=== PATIENT | female | born 1995 | race Two or more races ===

== ENCOUNTER → 2017-05-31 | Emergency (ER) | payer OTHER ==
[~2017-05-31] VITALS: Ht 152.4 cm; Wt 65.8 kg
[~2017-05-31] MED LIST: ENALAPRIL MALEAT5 MG; HUMALOG100 U/ML; HumaLOG 100 UNIT/1 ML (3ML) SUBCUTANEO; LANTUS SOLOSTAR3 ML; Lantus 1000 U/10 ML SUBCUTANEO
== END | disposition home or self-care (01) ==
LOC: ER 20:22
DX: K29.70 Gastritis, unspecified, without bleeding (principal)

== ENCOUNTER 2017-06-07 17:20 | Inpatient (IN) | payer OTHER ==
[~2017-06-07] VITALS: Ht 157.5 cm; Wt 65.8 kg
[2017-06-07] MEDS ORDERED: VASOTEC5 MG (17:26)
[2017-06-11] MEDS ORDERED: LEVOTHYROXINE25 MCG PO (13:28)
[2017-06-11] MEDS ORDERED: VASOTEC5 MG PO (13:30)
== END 2017-06-11 14:51 | disposition home or self-care (01) | DRG 637 ==
LOC: ER 17:20 → ICU-2 21:59 → SEC-K 06-11 05:08 → MEDI 06-11 13:57 → SEC-K 06-11 14:51
PROC: 4A033R1 Measurement of Arterial Saturation, Peripheral, Percutaneous Approach (ICD-10-PCS; principal; 2017-06-07)
PROC: BW40ZZZ Ultrasonography of Abdomen (ICD-10-PCS; 2017-06-07)
DX: E10.10 Type 1 diabetes mellitus with ketoacidosis without coma (principal); A41.9 Sepsis, unspecified organism; Z79.4 Long term (current) use of insulin; E86.0 Dehydration; K29.00 Acute gastritis without bleeding

== ENCOUNTER 2019-12-02 00:14 | Inpatient (IN) | payer OTHER ==
[~2019-12-02] VITALS: Ht 157.5 cm; Wt 77.1 kg
[~2019-12-02 00:14] MED LIST changes: +LEVOTHYROXINE25 MCG PO; +VASOTEC5 MG; +VASOTEC5 MG PO
--- NOTE | 2019-12-02 00:44 | NUR ---
SE RECIBE FEMINA ALERTA Y ORIENTADA POR SHERRI ESFERAS, AMBULANDO. REFIERE QUE PRESENTA DIARREAS DE CUATRO NIX DE EVOLUCION Y DOLOR DE BOBBY CON DIFICULTAD RESPIRATORIA DESDE DOROTHY. PRESENTE FIEBRE AL MOMENTO DE REALIZARLE EL TRIAGE. SE PRESENTA A IRASEMA. RENTA QUIEN ORDENA UBICAR A PACIENTE EN [facility] K.
--- NOTE | 2019-12-02 01:57 | NUR ---
SE RECIBE PACIENTE ALERTA Y ORIENTADA EVALOUADA POR LA IRASEMA. RENTA SE ORIENTA A PACIENTE SOBRE TRATAMIENTO MEDICO SE EXTRAEN MUESTRAS DE [place] Y SE ADMISNISTRAN MEDICAMENTOS MOISES ORDEN MEDICA BAJO MEDIDAS ASEPTICAS SE DA EMBASE PARA MUESTRA Y CULTIVO DE ORINA Y SE ORIENTA A APCIENTE A SEBASTIAN BARRY MUESTRA. SE CANALIZA PACIENTE EN ANTEBRAZO DERECHO #22 SE LE COLOCA .9NSS BAJANDO A 250ML/HR. SE EL A PACIENTE EN CAMA BAJO OBSERVACION POR CAMBIOS EN STRONG CONDICION.
--- NOTE | 2019-12-02 08:03 | NUR ---
SE RECIBE PTE LA CUAL SE ENCUENTRA EN ANTONIA CON BARANDAS ELEVADAS Y ID BAND AREA DE VENOPUNCION SE ENCUENTRA PATENTE Y JV DE EDEMA CON IV FLUID PATENTE 0.9NSS AT 250 ML/HR PTE SE ENCUENTRA PEND A CONSULTA CON DR. WHITAKER.
== END 2019-12-07 18:19 | disposition home or self-care (01) | DRG 392 ==
LOC: ER 00:14 → SURH 11:53
PROVIDERS: ADMIT Internal Medicine; ATTEND Internal Medicine
PROC: 4A033R1 Measurement of Arterial Saturation, Peripheral, Percutaneous Approach (ICD-10-PCS; principal; 2019-12-02)
PROC: BW40ZZZ Ultrasonography of Abdomen (ICD-10-PCS; 2019-12-02)
DX: K52.89 Other specified noninfective gastroenteritis and colitis (principal); A09 Infectious gastroenteritis and colitis, unspecified; E10.65 Type 1 diabetes mellitus with hyperglycemia; E03.8 Other specified hypothyroidism; I10 Essential (primary) hypertension; R50.9 Fever, unspecified; R31.0 Gross hematuria; E86.0 Dehydration; E87.8 Other disorders of electrolyte and fluid balance, not elsewhere classified; Z79.4 Long term (current) use of insulin; Z03.818 Encounter for observation for suspected exposure to other biological agents ruled out

== ENCOUNTER 2020-04-29 15:45 | Emergency (ER) | payer OTHER ==
[~2020-04-29] VITALS: Ht 157.5 cm; Wt 68.0 kg
== END 2020-04-29 20:05 | disposition home or self-care (01) ==
LOC: ER 15:45
DX: O26.891 Other specified pregnancy related conditions, first trimester (principal); R10.2 Pelvic and perineal pain; O98.511 Other viral diseases complicating pregnancy, first trimester; U07.1 COVID-19; Z3A.08 8 weeks gestation of pregnancy

== ENCOUNTER 2020-05-25 21:28 | Emergency (ER) | payer OTHER ==
[~2020-05-25] VITALS: Ht 157.5 cm; Wt 81.6 kg
[2020-05-25] MEDS ORDERED: SYNTHROID75 MCG PO (21:51)
== END 2020-05-26 01:00 | disposition home or self-care (01) ==
LOC: ER 21:28
DX: O26.891 Other specified pregnancy related conditions, first trimester (principal); R10.2 Pelvic and perineal pain; O46.8X1 Other antepartum hemorrhage, first trimester; O20.0 Threatened abortion

== ENCOUNTER 2021-07-08 10:06 | Emergency (ER) | payer OTHER ==
[~2021-07-08] VITALS: Ht 157.5 cm; Wt 81.6 kg
[~2021-07-08 10:06] MED LIST changes: +SYNTHROID75 MCG PO
[2021-07-08] MEDS ORDERED: SYNTHROID88 MCG PO (10:15)
[2021-07-08] MEDS ORDERED: HUMALOG JU100 UNIT/1 SQ (10:16)
[2021-07-08] MEDS ORDERED: CLEOCIN HCL300 MG PO (10:55)
== END 2021-07-08 11:34 | disposition home or self-care (01) ==
LOC: ER 10:06
DX: N61.1 Abscess of the breast and nipple (principal); L02.412 Cutaneous abscess of left axilla; B95.61 Methicillin susceptible Staphylococcus aureus infection as the cause of diseases classified elsewhere; E13.9 Other specified diabetes mellitus without complications; Z79.4 Long term (current) use of insulin; I10 Essential (primary) hypertension

== ENCOUNTER 2021-08-25 11:40 | Emergency (ER) | payer OTHER ==
[~2021-08-25] VITALS: Ht 157.5 cm; Wt 72.6 kg
[~2021-08-25 11:40] MED LIST changes: +CLEOCIN HCL300 MG PO; +HUMALOG JU100 UNIT/1 SQ; +SYNTHROID88 MCG PO
[2021-08-26] MEDS ORDERED: LEVSIN0.125 MG PO (02:47)
[2021-08-26] MEDS ORDERED: PEPCID20 MG PO (02:47)
[2021-08-26] MEDS ORDERED: INTESTINEX680 M1 PO (02:47)
[2021-08-26] MEDS ORDERED: CARAFATE1 GM PO (02:49)
== END 2021-08-26 02:57 | disposition home or self-care (01) ==
LOC: ER 11:40
DX: R10.84 Generalized abdominal pain (principal); R19.7 Diarrhea, unspecified; R11.10 Vomiting, unspecified; Z88.6 Allergy status to analgesic agent; Z91.040 Latex allergy status; E10.9 Type 1 diabetes mellitus without complications; Z79.4 Long term (current) use of insulin

== ENCOUNTER 2021-09-09 11:26 | Emergency (ER) | payer OTHER ==
[~2021-09-09] VITALS: Ht 165.1 cm; Wt 75.3 kg
[~2021-09-09 11:26] MED LIST changes: +CARAFATE1 GM PO; +INTESTINEX680 M1 PO; +LEVSIN0.125 MG PO; +PEPCID20 MG PO
== END 2021-09-09 16:09 | disposition home or self-care (01) ==
LOC: ER 11:26
DX: R09.81 Nasal congestion (principal); Z88.6 Allergy status to analgesic agent; Z91.040 Latex allergy status

== ENCOUNTER 2022-04-28 10:33 | Emergency (ER) | payer OTHER ==
[~2022-04-28] VITALS: Ht 157.5 cm; Wt 65.8 kg
[2022-04-28] MEDS ORDERED: SINGULAIR4 M1 PO (11:23)
[2022-04-28] MEDS ORDERED: IPRAT-ALBUT 0.5-3 ML IH (15:52)
[2022-04-28] MEDS ORDERED: MEDROLPACK PO (15:52)
[2022-04-28] MEDS ORDERED: BENZONATATE200 M1 PO (15:53)
== END 2022-04-28 16:42 | disposition home or self-care (01) ==
LOC: ER 10:33
DX: J45.901 Unspecified asthma with (acute) exacerbation (principal); Z20.822 Contact with and (suspected) exposure to COVID-19; E11.9 Type 2 diabetes mellitus without complications; Z79.4 Long term (current) use of insulin; E03.9 Hypothyroidism, unspecified; Z88.6 Allergy status to analgesic agent; Z91.040 Latex allergy status

== ENCOUNTER 2023-03-26 17:17 | Emergency (ER) | payer OTHER ==
[~2023-03-26] VITALS: Ht 157.5 cm; Wt 63.5 kg
[~2023-03-26 17:17] MED LIST changes: +BENZONATATE200 M1 PO; +IPRAT-ALBUT 0.5-3 ML IH; +MEDROLPACK PO; +SINGULAIR4 M1 PO
[2023-03-26 20:05] LABS: HEMATOCRIT 39.5 % (36.0-45.00); HEMOGLOBIN 13.2 g/dL (12.0-15.00); MEAN CELL VOLUME 77.6 fL (80.00-100.00); MEAN CORPUSCULAR HEMOGLOBIN 25.9 pg (27.00-32.0); MEAN CORPUSCULAR HGB CONC 33.3 g/dl (32.0-36.0); PLATELET COUNT 240 K/uL (150-450); RED BLOOD COUNT 5.09 M/uL (4.00-6.00)
[2023-03-26 20:17] LABS: INR 0.99; PARTIAL THROMBOPLASTIN TIME 28.7 SECONDS (22.0-34.0); PROTHROMBIN TIME 10.4 SECONDS (9.0-11.5)
[2023-03-26 20:20] LABS: CALCIUM 9.1 mg/dL (8.5-10.1); CREATININE SERUM 0.56 mg/dL (0.55-1.02); GFR 128.9; POTASSIUM 3.35 mEq/L (3.5-5.1)
[2023-03-26 21:17] LABS: PH,URINE 5.5 (5.0-8.0); URINE APPEARANCE Cloudy; URINE BILIRRUBIN Negative (NEGATIVE); URINE BLOOD Negative; URINE COLOR Yellow; URINE GLUCOSE Negative (NEGATIVE); URINE LEUKOCYTE Negative; URINE NITRATE Negative
[2023-03-26 21:18] LABS: URINE BACTERIA 5369.7 uL (0.0-1933); URINE EPITHELIAL CELLS 97.6 uL (0.0-38.8); URINE RBC 4.7 uL (0.0-20.8); URINE WBC 32.3 uL (0.0-23.2)
[2023-03-26 21:24] LABS: URINE PROTEIN 100 (NEGATIVE)
[2023-03-26] MEDS ORDERED: PEPCID AC20 MG PO (22:51)
[2023-03-26] MEDS ORDERED: DOLOGESIC 500-1 EACH PO (22:51)
[2023-03-26] MEDS ORDERED: ZOFRAN8 MG PO (22:51)
[2023-03-26] MEDS ORDERED: INTESTINEX680 M1 PO (22:51)
== END 2023-03-26 23:46 | disposition home or self-care (01) ==
LOC: ER 17:17
PROVIDERS: General Practice
DX: R10.31 Right lower quadrant pain (principal); N83.201 Unspecified ovarian cyst, right side; Z88.6 Allergy status to analgesic agent; Z91.040 Latex allergy status

== ENCOUNTER 2025-03-05 03:31 | Emergency (ER) | payer OTHER ==
[~2025-03-05] VITALS: Ht 157.5 cm; Wt 70.3 kg
[~2025-03-05 03:31] MED LIST changes: +DOLOGESIC 500-1 EACH PO; +PEPCID AC20 MG PO; +ZOFRAN8 MG PO
[2025-03-05] MEDS ORDERED: SODIUM CL 0.9% 25 ML IV.SOLN. IV PUSH STA (05:46)
[2025-03-05] MEDS ORDERED: DEXAMETHASONE SODIUM PHOSPHATE 4 MG/ML VIAL IM STA (05:47)
[2025-03-05] MEDS ORDERED: DEXAMETHASONE SODIUM PHOSPHATE 4 MG/ML VIAL ONE (06:00)
[2025-03-05 06:39] LABS: BASO % 0.5 % (0.1-1.2); EOS # 0.15 (0.04-0.54); EOS % 1.8 % (0.7-7.0); LYMPH # 2.48 (1.18-3.74); LYMPH % 30.0 % (19.3-53.1); MEAN PLATELET VOLUME 10.20 fl (9.4-12.4); MONO # 0.68 (0.24-0.82); MONO % 8.2 % (4.7-12.5); NEUT # 4.88 (1.56-6.13); NEUT % 59.1 % (34.0-71.1); RED CELL DISTRIBUTION WIDTH 13.0 % (11.6-14.4)
[2025-03-05 07:02] LABS: BUN CREA RATIO 15.0 (7.0-25.0); CREATININE SERUM 0.54 mg/dL (0.55-1.02); GFR 132.56; GLUCOSE FASTING 113.0 mg/dL (65-100); OSMOLALITY SERUM 277.0 MOSM/KG (275-295)
[2025-03-05 08:39] LABS: URINE APPEARANCE Cloudy; URINE BILIRRUBIN Negative (NEGATIVE); URINE BLOOD Trace; URINE COLOR Yellow; URINE GLUCOSE Negative (NEGATIVE); URINE KETONE Negative (NEGATIVE); URINE LEUKOCYTE Large; URINE NITRATE Negative; URINE UROBILINOGEN 0.2 E.U./dl
[2025-03-05 08:43] LABS: URINE EPITHELIAL CELLS 142.4 uL (0.0-38.8); URINE RBC 3.0 uL (0.0-20.8); URINE WBC 261.6 uL (0.0-23.2)
[2025-03-05 08:59] LABS: URINE BACTERIA > 9821.5 uL (0.0-1933); URINE CAST 0.14 uL (0.0-1.40); URINE PROTEIN 100 (NEGATIVE)
[2025-03-05 09:00] LABS: URINE CRYSTALS FEW /HPF
== END 2025-03-05 09:20 | disposition home or self-care (01) ==
LOC: ER 03:31
PROVIDERS: General Practice
DX: O23.31 Infections of other parts of urinary tract in pregnancy, first trimester (principal); N39.0 Urinary tract infection, site not specified; Z3A.11 11 weeks gestation of pregnancy; Z88.6 Allergy status to analgesic agent; Z91.040 Latex allergy status; E11.9 Type 2 diabetes mellitus without complications; Z79.4 Long term (current) use of insulin; Z20.822 Contact with and (suspected) exposure to COVID-19

== ENCOUNTER → 2025-04-03 08:06 | Outpatient (CLI) | payer OTHER | END | disposition home or self-care (01) | LOC: PRENATAL 08:06 | PROVIDERS: ATTEND Obstetrics & Gynecology Maternal & Fetal Medicine | DX: O36.80X0 Pregnancy with inconclusive fetal viability, not applicable or unspecified (principal); Z36.82 Encounter for antenatal screening for nuchal translucency; Z14.8 Genetic carrier of other disease; O24.311 Unspecified pre-existing diabetes mellitus in pregnancy, first trimester; O34.219 Maternal care for unspecified type scar from previous cesarean delivery; Z3A.12 12 weeks gestation of pregnancy ==